=== PATIENT | female | born 1950 | race Caucasian/White ===

== ENCOUNTER 2017-09-17 06:42 | Inpatient (IN) | payer OTHER, MEDICARE ==
[~2017-09-17] VITALS: Ht 157.5 cm; Wt 68.0 kg
--- NOTE | 2017-09-17 06:42 | NUR ---
BBRA 60; N/V WITH DARK RED BLOOD IN VOMIT W/ DIAHREA. COUG THAT PT STATED 'HAS BEEN GOING ON FOR 2 MONTHS". VSS NAD. A/OX4. WILL CONTINUE TO MONITOR FOR ANY CHANGES DURING THE SHIFT.
--- NOTE | 2017-09-17 06:50 | NUR ---
ROSALINDA COVINGTON STARTED RIGHT FA 18G
[2017-09-17] MEDS ORDERED: OCTREOTIDE 1,250 MCG in IV NS 0.9% 250 ML IV ONE (07:00)
[2017-09-17] MEDS ORDERED: IV NS 0.9% 1,000 ML BAG IV ONE (07:00)
[2017-09-17] MEDS ORDERED: ONDANSETRON HCL/PF 4 MG/2 ML VIAL IVP ONE (07:00)
[2017-09-17] MEDS ORDERED: PANTOPRAZOLE 80 MG in IV NS 0.9% 100 ML IV ONE (07:00)
[2017-09-17] MEDS ORDERED: OCTREOTIDE 50 MCG/ML AMPUL IV ONE (07:00)
--- NOTE | 2017-09-17 07:02 | NUR ---
BLOOD COLECTED AND WAITING FOR PICKUP
[2017-09-17] MEDS ORDERED: ONDANSETRON HCL/PF 4 MG/2 ML VIAL ONE (07:06)
[2017-09-17] MEDS ORDERED: PANTOPRAZOLE 40 MG VIAL ONE (07:06)
[2017-09-17] MEDS ORDERED: OCTREOTIDE 500 MCG/ML VIAL ONE (07:07)
[2017-09-17] MEDS ORDERED: OCTREOTIDE 100 MCG/ML VIAL ONE (07:07)
[2017-09-17 07:16] LABS: BASOPHILS # (AUTO) 0.1 /CMM (0.0-0.2); BASOPHILS % (AUTO) 1.7 % (0.0-2.0); EOSINOPHILS % (AUTO) 0.8 % (0.0-6.0); HEMATOCRIT 34 % (33-45); HEMOGLOBIN 11.3 g/dL (11.5-14.8); LYMPHOCYTES # (AUTO) 1.6 /CMM (0.8-4.8); MEAN CORPUSCULAR HGB CONC 33 g/dl (31.0-36.0); MEAN CORPUSCULAR VOLUME 88 fL (82-100); MONOCYTES # (AUTO) 0.9 /CMM (0.1-1.30); MONOCYTES % (AUTO) 12.3 % (2.0-12.0); NEUTROPHILS # (AUTO) 4.7 /CMM (1.8-8.9); NEUTROPHILS % (AUTO) 63.2 % (43.0-81.0); PLATELET COUNT (AUTO) 96 /CMM (150-450); RDW COEFFICIENT OF VARIATION 15.5 (11.5-15.0); RED BLOOD CELL COUNT(AUTO) 3.83 MIL/uL (4.0-5.2); WHITE BLOOD COUNT (AUTO) 7.4 K/uL (4.3-11.0)
--- NOTE | 2017-09-17 07:30 | NUR ---
RECEIVED REPORT FOR ANNITA.
[2017-09-17 07:33] LABS: INR 1.35 (0.87-1.13)
[2017-09-17 07:35] LABS: SERUM AMMONIA 73 umol/L (11-32)
[2017-09-17 07:36] LABS: CALCIUM, SERUM 8.2 mg/dL (8.5-10.1); CARBON DIOXIDE 27 mmol/L (21-32); CHLORIDE 108 mmol/L (98-107); CREATININE 0.7 mg/dL (0.6-1.3); GLUCOSE 172 mg/dL (74-106); POTASSIUM 4.7 mmol/L (3.5-5.1); SODIUM SERUM 144 mmol/L (136-145); UREA NITROGEN, BLOOD 17 mg/dL (7-18)
--- NOTE | 2017-09-17 07:36 | NUR ---
PT VOMIT 110 CC OF COFFEE GROUND EMESIS
[2017-09-17 07:40] LABS: ALANINE AMINOTRANSFERASE 58 U/L (12-78); ALBUMIN 2.8 g/dL (3.4-5.0); ALKALINE PHOSPHATASE 80 U/L (46-116); ASPARTATE AMINOTRANSFERASE 89 U/L (15-37); BILIRUBIN,DIRECT 0.6 mg/dL (0.0-0.2); BILIRUBIN,TOTAL 1.9 mg/dL (0.2-1.0); LIPASE 306 U/L (73-393); TOTAL PROTEIN, SERUM 7.6 g/dL (6.4-8.2)
--- NOTE | 2017-09-17 07:40 | NUR ---
PATIENT TAKEN TO CT VIA STRETCHER.
--- NOTE | 2017-09-17 07:53 | NUR ---
PATIENT RETURNED FROM CT IN STABLE CONDITION.
--- NOTE | 2017-09-17 08:22 | NUR ---
DR PARR CALLED BACK, SPOKE TO DR OHARA
--- NOTE | 2017-09-17 08:24 | NUR ---
PAGED BRYAN THURMAN NP IS RETAIL ASSISTANT
[2017-09-17] MEDS ORDERED: PANTOPRAZOLE 80 MG in IV NS 0.9% 500 ML IV PRN (08:30)
[2017-09-17 09:16] LABS: EOSINOPHILS % (MANUAL) 1 % (0-4); LYMPHOCYTES % (MANUAL) 16 % (16-48); MONOCYTES % (MANUAL) 7 % (0-11.0); NEUTROPHILS % (MANUAL) 76 (42-76)
--- NOTE | 2017-09-17 09:21 | NUR ---
REPORT GIVEN TO RAJEEV TELLEZ FOR ANNITA UPON ADMISSION.
[2017-09-17 09:29] LABS: TROPONIN I < 0.017 ng/mL (0.00-0.056)
--- NOTE | 2017-09-17 09:50 | NUR ---
PATIENT TRANSPORTED TO [facility] VIA ACLS PROTOCOL. RNRAJEEV TO PROVIDE ANNITA.
[2017-09-17 10:30] VITALS: BP 131/69
--- NOTE | 2017-09-17 11:00 | NUR ---
MS RN RECEIVED A NEW ADMISSION, 66 YEAR OLD FEMALE,CAME IN W/ DX OF GI BLEED, AWAKE,ALERT,ORIENTED X4,NOT IN ANY FORM OF DISTRESS, RESPIRATIONS EVEN AND UNLABORED, NO SOB NOTED.
[2017-09-17] MEDS ORDERED: Z GUARD REMEDY 2 OZ OINT TP PRN (11:30)
[2017-09-17] MEDS ORDERED: ONDANSETRON HCL/PF 4 MG/2 ML VIAL IVP PRN (11:30)
[2017-09-17] MEDS ORDERED: MORPHINE SULFATE INJ 4 MG/ML DISP.SYRIN IV PRN (11:30)
--- NOTE | 2017-09-17 12:00 | NUR ---
MS RN WAS SEEN BY NYA Smith/ ORDERS MADE AND CARRIED OUT.
[2017-09-17 12:26] LABS: BASOPHILS % (AUTO) 0.3 % (0.0-2.0); EOSINOPHILS % (AUTO) 0.3 % (0.0-6.0); HEMATOCRIT 30 % (33-45); HEMOGLOBIN 10.2 g/dL (11.5-14.8); LYMPHOCYTES # (AUTO) 0.9 /CMM (0.8-4.8); LYMPHOCYTES % (AUTO) 22.1 % (20.0-44.0); MEAN CORPUSCULAR HGB CONC 34 g/dl (31.0-36.0); MEAN CORPUSCULAR VOLUME 89 fL (82-100); MONOCYTES # (AUTO) 0.5 /CMM (0.1-1.30); MONOCYTES % (AUTO) 11.2 % (2.0-12.0); NEUTROPHILS # (AUTO) 2.8 /CMM (1.8-8.9); NEUTROPHILS % (AUTO) 66.1 % (43.0-81.0); PLATELET COUNT (AUTO) 71 /CMM (150-450); RDW COEFFICIENT OF VARIATION 15.5 (11.5-15.0); RED BLOOD CELL COUNT(AUTO) 3.42 MIL/uL (4.0-5.2); WHITE BLOOD COUNT (AUTO) 4.2 K/uL (4.3-11.0)
[2017-09-17 13:01] LABS: NEUTROPHILS % (MANUAL) 66 (42-76)
[2017-09-17 13:02] LABS: LYMPHOCYTES % (MANUAL) 25 % (16-48); MONOCYTES % (MANUAL) 9 % (0-11.0)
--- NOTE | 2017-09-17 14:10 | NUR ---
MS RN WAS SEEN BY OMAR Smith/ ORDERS MADE AND CARRIED OUT.
[2017-09-17] MEDS ORDERED: NA PHOS,M-B/NA PHOS,DI-BA 1 EA ENEMA RC PRN (14:30)
[2017-09-17] MEDS ORDERED: MAGNESIUM CITRATE 296 ML BOTTLE PO ONE ×2 (14:30→19:00)
[2017-09-17] MEDS ORDERED: LORAZEPAM INJ 2 MG/ML VIAL IV PRN (14:30)
[2017-09-17] MEDS ORDERED: PEG 3350/NA SULF,BICARB,CL/KCL 4,000 ML BOTTLE PO ONE (14:30)
[2017-09-17 15:49] LABS: HEMOGLOBIN 10.5 g/dL (11.5-14.8)
[2017-09-17] MEDS: IV NS 0.9% 1,000 ML IV PRN (15:58)
[2017-09-17] MEDS: METRONIDAZOLE 500MG/ NS 100ML 500 MG in PREMIX 1 EA IV SCH ×2 (15:58→20:24)
[2017-09-17 16:00] VITALS: BP 125/84
[2017-09-17 16:45] LABS: INR 1.41 (0.87-1.13)
[2017-09-17 20:00] VITALS: BP 142/78
[2017-09-17] MEDS: PANTOPRAZOLE 40 MG VIAL IV SCH (20:24)
[2017-09-18] VITALS (7 sets, daily range): BP systolic 122–141; BP diastolic 66–92
[2017-09-18 01:03] LABS: HEMOGLOBIN 9.2 g/dL (11.5-14.8)
[2017-09-18] MEDS: METRONIDAZOLE 500MG/ NS 100ML 500 MG in PREMIX 1 EA IV SCH ×3 (04:34→21:19)
--- NOTE | 2017-09-18 08:00 | NUR ---
ms rn received on bed, awake,alert,oriented x4,not in any form of distress, respirations even and ulabored,no sob noted, lungs have wheezes bilaterally, abdomen soft,positive bowel sounds, denies pain at this time, for egd,colonoscopy this morning, all needs attended.
[2017-09-18 08:05] LABS: BASOPHILS % (AUTO) 0.8 % (0.0-2.0); EOSINOPHILS % (AUTO) 2.8 % (0.0-6.0); HEMATOCRIT 28 % (33-45); HEMOGLOBIN 9.3 g/dL (11.5-14.8); LYMPHOCYTES # (AUTO) 1.1 /CMM (0.8-4.8); LYMPHOCYTES % (AUTO) 33.2 % (20.0-44.0); MEAN CORPUSCULAR HGB CONC 33 g/dl (31.0-36.0); MEAN CORPUSCULAR VOLUME 89 fL (82-100); MONOCYTES # (AUTO) 0.4 /CMM (0.1-1.30); NEUTROPHILS # (AUTO) 1.7 /CMM (1.8-8.9); NEUTROPHILS % (AUTO) 52.2 % (43.0-81.0); PLATELET COUNT (AUTO) 68 /CMM (150-450); RDW COEFFICIENT OF VARIATION 15.2 (11.5-15.0); RED BLOOD CELL COUNT(AUTO) 3.13 MIL/uL (4.0-5.2); WHITE BLOOD COUNT (AUTO) 3.3 K/uL (4.3-11.0)
--- NOTE | 2017-09-18 08:05 | NUR ---
ms rn went down for egd today,all needs attended.
[2017-09-18] MEDS ORDERED: EPINEPHRINE (1:10,000) SYRINGE 1 MG/10 ML DISP.SYRIN ONE (08:15)
[2017-09-18 08:28] LABS: INR 1.39 (0.87-1.13)
[2017-09-18 08:30] LABS: CALCIUM, SERUM 7.4 mg/dL (8.5-10.1); CREATININE 0.8 mg/dL (0.6-1.3); MAGNESIUM 2.3 mg/dL (1.8-2.4); PHOSPHORUS 3.1 mg/dL (2.5-4.9); POTASSIUM 4.1 mmol/L (3.5-5.1)
--- NOTE | 2017-09-18 10:00 | NUR ---
ms rn patient came back from surgery,breakfast served, tolerated well.
[2017-09-18 11:31] LABS: EOSINOPHILS % (MANUAL) 5 % (0-4); LYMPHOCYTES % (MANUAL) 33 % (16-48); NEUTROPHILS % (MANUAL) 48 (42-76)
[2017-09-18 11:32] LABS: MONOCYTES % (MANUAL) 14 % (0-11.0)
--- NOTE | 2017-09-18 12:19 | NUR ---
Social service consult requested by JAE Dye for homelessness. Pt. is a 66 year old male who was admitted to [facility] for GI Bleed. SW and social work case manager met with pt. bedside. Pt. is alert and oriented x 4. Pt. was cooperative with SW during the visit. Pt. states she resides at [facility]. Pt. is currently residing at [facility] and suites [place] [address] [place] [place] [address]. Pt. states she would like to be discharged back to the [facility] once medically cleared. Pt. receives approximately $900 in SSI per month. Pt. does not have an emergency lathe operator contact lens. Pt. is ambulatory with a unsteady gait. Pt. would benefit from a walker upon discharge. dining services manager Niki Byrd is aware. Pt. denies drug use, however pt. drinks small bottles of [place] beer per day. pt. states she last drank on Saturday. Pt. smokes about 6 to 7 cigarettes per day. Pt. denies suicidal/homicidal ideations and visual/auditory hallucinations at this time. Pt. declined [facility] placement and would like to go back to the [facility] in [place]. No other social service needs are requested at this time. SW is available, if needed.
[2017-09-18] MEDS: PANTOPRAZOLE 40 MG VIAL IV SCH ×2 (13:59→21:19)
--- NOTE | 2017-09-18 20:15 | NUR ---
RN NOTES RECEIVED PT AWAKE ON BED, PT JUST CAME UP, THEY DID HIDA-SCAN DOWNSTAIRS, PT. IS A/OX3, DENIES PAIN, NO SOB, CALL LIGHT WITHIN REACH, SIDERAILSUPX2, CONTINUE TO MONITOR
[2017-09-19] MEDS: METRONIDAZOLE 500MG/ NS 100ML 500 MG in PREMIX 1 EA IV SCH ×3 (04:16→20:59)
[2017-09-19] MEDS: IPRATROPIUM NEB FS 0.5 MG/2.5 ML AMPUL.NEB NEB PRN ×3 (05:04→21:10)
[2017-09-19] MEDS: ALBUTEROL FS 2.5 MG/0.5 ML VIAL.NEB NEB PRN ×3 (05:04→21:10)
[2017-09-19] MEDS: OCTREOTIDE 1,250 MCG in IV NS 0.9% 247.5 ML IV PRN (05:50)
--- NOTE | 2017-09-19 06:19 | NUR ---
RN NOTES AWAKE , MORNING CARE RENDERED, CALL LIGHT WITHIN REACH, SIDERIALSUPX2, PT. NEEDS ATTENDED
[2017-09-19 08:00] VITALS: BP 108/57
--- NOTE | 2017-09-19 08:00 | NUR ---
MS RN RECEIVED ON BED. AWAKE,ALERT,ORIENTED X4,NOT IN ANY FORM OF DISTRESS, RESPIRATIONS EVEN AND UNLABORED,NO SOB NOTED, LUNGS HAVE WHEEZES BILATERALLY ,ABDOMEN SOFT,POSITIVE BOWEL SOUNDS, DENIES PAIN AT THIS TIME, WILL,MONITOR PATIENT'S CONDITION.
[2017-09-19 08:28] LABS: BASOPHILS % (AUTO) 0.4 % (0.0-2.0); EOSINOPHILS % (AUTO) 3.4 % (0.0-6.0); HEMATOCRIT 27 % (33-45); HEMOGLOBIN 9.1 g/dL (11.5-14.8); LYMPHOCYTES % (AUTO) 32.3 % (20.0-44.0); MEAN CORPUSCULAR HGB CONC 34 g/dl (31.0-36.0); MEAN CORPUSCULAR VOLUME 89 fL (82-100); MONOCYTES # (AUTO) 0.3 /CMM (0.1-1.30); MONOCYTES % (AUTO) 10.4 % (2.0-12.0); NEUTROPHILS # (AUTO) 1.6 /CMM (1.8-8.9); NEUTROPHILS % (AUTO) 53.5 % (43.0-81.0); PLATELET COUNT (AUTO) 70 /CMM (150-450); RDW COEFFICIENT OF VARIATION 15.4 (11.5-15.0); RED BLOOD CELL COUNT(AUTO) 3.06 MIL/uL (4.0-5.2)
[2017-09-19] MEDS: PANTOPRAZOLE 40 MG VIAL IV SCH ×2 (08:41→20:58)
--- NOTE | 2017-09-19 08:45 | NUR ---
MS TELLEZ BREAKFAST SERVED,DUE MEDS GIVEN,TOLERATED WELL.
[2017-09-19 08:59] LABS: CALCIUM, SERUM 7.6 mg/dL (8.5-10.1); CREATININE 0.8 mg/dL (0.6-1.3); MAGNESIUM 1.8 mg/dL (1.8-2.4); PHOSPHORUS 3.6 mg/dL (2.5-4.9); POTASSIUM 4.2 mmol/L (3.5-5.1)
[2017-09-19 10:14] LABS: EOSINOPHILS % (MANUAL) 3 % (0-4); LYMPHOCYTES % (MANUAL) 27 % (16-48); MONOCYTES % (MANUAL) 9 % (0-11.0); NEUTROPHILS % (MANUAL) 61 (42-76)
[2017-09-19 16:00] VITALS: BP 100/64
--- NOTE | 2017-09-19 18:07 | NUR ---
MS RN ON BED, NO DISTRESS NOTED.
--- NOTE | 2017-09-19 19:30 | NUR ---
RN NOTES RECEIVED PT. AWAKE ON BED, A/OX3, SANDOSTATIN RUNNING @ 10ML/HR, DENIES PAIN, NO SOB, CALL LIGHT WITHIN REACH, SIDERAILSUPX2, CONTINUE TO MONITOR
[2017-09-19 20:00] VITALS: BP 116/70
[2017-09-20] MEDS: METRONIDAZOLE 500MG/ NS 100ML 500 MG in PREMIX 1 EA IV SCH ×3 (04:57→21:40)
[2017-09-20] MEDS: OCTREOTIDE 1,250 MCG in IV NS 0.9% 247.5 ML IV PRN (06:32)
--- NOTE | 2017-09-20 06:53 | NUR ---
RN NOTES AWAKE, MORNING CALL LIGHT WITHIN REACH, SIDERAILSUPX2, DENIES PAIN, NO SOB, PT NEEDS ATTENDED CARE RENDERED
[2017-09-20 07:30] LABS: BASOPHILS % (AUTO) 0.4 % (0.0-2.0); EOSINOPHILS % (AUTO) 2.7 % (0.0-6.0); HEMATOCRIT 27 % (33-45); HEMOGLOBIN 8.9 g/dL (11.5-14.8); LYMPHOCYTES % (AUTO) 30.3 % (20.0-44.0); MEAN CORPUSCULAR HGB CONC 33 g/dl (31.0-36.0); MEAN CORPUSCULAR VOLUME 89 fL (82-100); MONOCYTES # (AUTO) 0.3 /CMM (0.1-1.30); MONOCYTES % (AUTO) 9.7 % (2.0-12.0); NEUTROPHILS # (AUTO) 1.8 /CMM (1.8-8.9); NEUTROPHILS % (AUTO) 56.9 % (43.0-81.0); PLATELET COUNT (AUTO) 68 /CMM (150-450); RDW COEFFICIENT OF VARIATION 15.1 (11.5-15.0); RED BLOOD CELL COUNT(AUTO) 3.06 MIL/uL (4.0-5.2); WHITE BLOOD COUNT (AUTO) 3.2 K/uL (4.3-11.0)
[2017-09-20 07:37] LABS: CALCIUM, SERUM 7.7 mg/dL (8.5-10.1); CREATININE 0.8 mg/dL (0.6-1.3); MAGNESIUM 1.7 mg/dL (1.8-2.4); PHOSPHORUS 4.1 mg/dL (2.5-4.9); POTASSIUM 4.1 mmol/L (3.5-5.1)
[2017-09-20 08:00] VITALS: BP 127/67
--- NOTE | 2017-09-20 08:00 | NUR ---
RN NOTES RECEIVED PATIENT IN THE BED A/O X4, PATIENT HAS NO RESPIRATORY DISTRESS, ON O2-2L NC, SCHEDULED MEDICATION ADMINISTERED, V/S STABLE. IV NS AT 75 ML/HR INTACT , ENCOURAGED TO EXPRESS FEELINGS AND CONCERNS. PATIENT HAS NO DIARRHEA TODAY. PATIENT AMBULATORY USING BATHROOM, CALL LIGHT WITHIN TO REACH, SAFETY PRECAUTION MAINTAINED ALL THE TIME. CONTINUED MONITORING.
[2017-09-20] MEDS: PANTOPRAZOLE 40 MG VIAL IV SCH ×2 (09:32→21:40)
[2017-09-20 09:49] LABS: EOSINOPHILS % (MANUAL) 4 % (0-4); LYMPHOCYTES % (MANUAL) 21 % (16-48); MONOCYTES % (MANUAL) 7 % (0-11.0); NEUTROPHILS % (MANUAL) 68 (42-76)
[2017-09-20] MEDS ORDERED: methylPREDNISolone SOD SUCC 125 MG/2ML VIAL IV ONE (10:00)
[2017-09-20] MEDS: Magnesium 1GM/D5W 100ML PREMIX 100 ML IV SCH ×2 (11:46→13:33)
[2017-09-20] MEDS: methylPREDNISolone SOD SUCC 125 MG/2ML VIAL IV SCH ×2 (13:34→16:51)
--- NOTE | 2017-09-20 15:14 | NUR ---
RN NOTES ADMINISTERED MORPHINE 2 MG/ML IV PUSH PER PATIENT REQUEST GENERALIZED PAIN 8/10, V/S TAKEN BP-127/67, P-71, CALL LIGHT WITHIN TO REACH, CONTINUED MONITORING.
--- NOTE | 2017-09-20 15:30 | NUR ---
MSRN RECEIVING NOTES. PT A&0X3, WATCHING T.V IN BED. PT WITH O2 VIA NC AT 1LPM, SAO2 92%, PT DENIES RESP DISTRESS. PT REPORTS ADEQUATE PAIN MANAGEMENT. PT WITH IVCX2. IVC AT R FA G18 INTACT AND SALINE FLUSH PATENT. IVC AT L FA G#22 INTACT AND OPERATIONAL WITH MEDICATION PRESCRIBED. PT BED IN LOWEST LOCKED POSITION WITH HANDRAILSX2 ANDS CALL MOBLEY WITHIN REACH. PT BRIEFED ON TODAY'S POC AND IS WITHOUT CONCERN OR COMPLAINT.
--- NOTE | 2017-09-20 15:30 | NUR ---
RN NOTES PATIENT IN THE BED MEDICATION WERE ADMINISTERED FOR PAIN EFFECTIVE. PATIENT LYING DEB OF THER BED, NO ACUTE DISTRESS, NO RESPIRATORY DISTRESS. REPORT GIVEN ROSALINDA HARDEN FOR ANNITA.
[2017-09-20 16:00] VITALS: BP 139/77
--- NOTE | 2017-09-20 17:00 | NUR ---
MSRN NOTES. PT REPORTS LARGE FORMED BOWEL MOTION WITHOUT ABNORMALITY. BMX2 TODAY.
--- NOTE | 2017-09-20 18:17 | NUR ---
MSRN CLOSING NOTES. PT REMAINS STABLE. PT TOLERATING ROOM AIR AND DENIES RESP DISTRESS. PT REPORTS ADEQUATE PAIN MANAGEMENT. PT WITH IVCX2 INTACT AND OPERATIONAL OR SALINE LOCKED. PT BED IN LOWEST LOCKED POSITION WITH HANDRAILSX2 AND CALL MOBLEY WITHIN REACH. ALL DAY NURSE DUTIES ATTENDED TO AND PT IS WITHOUT CONCERN OR COMPLAINT AT THIS TIME. WILL ENDORSE TO NIGHT NURSE AT BEDSIDE FOR ANNITA.
--- NOTE | 2017-09-20 19:15 | NUR ---
MS/RN OPENING NOTES PT RECEIVED AWAKE, HOB ELEVATED HIGH FOWLERS, WATCHING TV. A/OX4. CURRENTLY ON ROOM AIR, BREATHING EVEN AND UNLABORED. DENIES SOB AT THIS TIME. NO COMPLAINTS OF PAIN, NOTES SOME ABDOMINAL DISCOMFORT/SORENESS BUT ITS TOLERABLE AND DOES NOT WANT PAIN MEDICATION AT THIS TIME. PT CONFIRMS SHE IS PASSING GAS AND HAD A BM TODAY WITH NO S/S OF BLEEDING. IV TO LFA PATENT AND INTACT RUNNING SANDOSTATIN AT 10ML/HR ORDERED. BED IN LOW/LOCKED POSITION WITH CALL LIGHT IN REACH. SIDE RAILS UPX2. WILL CONTINUE TO MONITOR
[2017-09-20 20:00] VITALS: BP 119/76
[2017-09-21] MEDS: METRONIDAZOLE 500MG/ NS 100ML 500 MG in PREMIX 1 EA IV SCH ×3 (05:19→21:37)
[2017-09-21 06:26] LABS: HEMATOCRIT 30 % (33-45); LYMPHOCYTES # (AUTO) 0.5 /CMM (0.8-4.8); LYMPHOCYTES % (AUTO) 8.1 % (20.0-44.0); MEAN CORPUSCULAR HGB CONC 34 g/dl (31.0-36.0); MEAN CORPUSCULAR VOLUME 89 fL (82-100); MONOCYTES # (AUTO) 0.3 /CMM (0.1-1.30); MONOCYTES % (AUTO) 5.4 % (2.0-12.0); NEUTROPHILS # (AUTO) 5.5 /CMM (1.8-8.9); NEUTROPHILS % (AUTO) 86.5 % (43.0-81.0); PLATELET COUNT (AUTO) 79 /CMM (150-450); RDW COEFFICIENT OF VARIATION 15.3 (11.5-15.0); RED BLOOD CELL COUNT(AUTO) 3.35 MIL/uL (4.0-5.2); WHITE BLOOD COUNT (AUTO) 6.4 K/uL (4.3-11.0)
[2017-09-21 06:41] LABS: CALCIUM, SERUM 7.8 mg/dL (8.5-10.1); CREATININE 0.8 mg/dL (0.6-1.3); PHOSPHORUS 3.8 mg/dL (2.5-4.9); POTASSIUM 4.2 mmol/L (3.5-5.1)
--- NOTE | 2017-09-21 07:00 | NUR ---
MS/RN CLOSING NOTES PT ASLEEP, EASILY AROUSABLE TO NAME. A/OX3, ON O2L VIA NC, BREATHING EVEN AND UNLABORED. DENIES SOB OR PAIN AT THIS TIME. IV TO LFA PATENT AND INTACT RUNNING SANDOSTATIN AT 10ML/HR ORDERED. NO S/S OF BLEEDING NOTED DURING SHIFT. NO SIGNIFICANT CHANGES OVERNIGHT. KEPT PT COMFORTABLE. BED REMAINS IN LOW/LOCKED POSITION WITH CALL LIGHT IN REACH. SIDE RAILS UPX2. WILL ENDORSE TO DAY SHIFT RN ANNITA.
--- NOTE | 2017-09-21 07:30 | NUR ---
MS RN NOTES PATIENT RECEIVED RESTING INSIDE ROOM. SLEEPING, EASILY AROUSABLE THROUGH VERBAL AND TACTILE STIMULI. PATIENT ALERT AND ORIENTED, ABLE TO MAKE NEEDS KNOWN AND FOLLOW SIMPLE INSTRUCTIONS. BREATHING EVEN AND UNLABORED. NO SOB OR ACUTE DISTRESS NOTED AT THIS TIME. PATIENT AFEBRILE, SKIN DRY AND WARM TO TOUCH. IV SITE ON LFA INTACT AND PATENT, ONGOING IV SANDOSTATIN @ 10CC/HR. NO SWELLING OR BLEEDING NOTED ON IV SITE. WILL CONTINUE TO MONITOR. BED LOCKED AND IN LOW POSITION. BILATERAL UPPER SIDERAILS UP AND LOCKED. CALL LIGHT WITHIN EASY REACH
[2017-09-21 07:55] LABS: BAND % (MANUAL) 3 % (0.0-5.0); LYMPHOCYTES % (MANUAL) 10 % (16-48); MONOCYTES % (MANUAL) 3 % (0-11.0); NEUTROPHILS % (MANUAL) 84 (42-76)
[2017-09-21 08:00] VITALS: BP 124/76
[2017-09-21] MEDS: PANTOPRAZOLE 40 MG VIAL IV SCH ×2 (08:37→21:37)
[2017-09-21] MEDS: methylPREDNISolone SOD SUCC 125 MG/2ML VIAL IV SCH ×3 (08:37→17:24)
[2017-09-21] MEDS: OCTREOTIDE 1,250 MCG in IV NS 0.9% 247.5 ML IV PRN (12:18)
--- NOTE | 2017-09-21 12:18 | NUR ---
MS RN NOTES RECEIVED CALL FROM JACINTO, SPOKE WITH DEL. WITH REQUEST FOR SANDOSTATIN BAG TO BE REPLACED/CHANGED PREVIOUS BAG IS PAST 24 HOURS. SANDOSTATIN BAG CHANGED, IV INFUSING AT 10CC/HR. WILL CONTINUE TO MONITOR.
[2017-09-21 16:00] VITALS: BP 134/80
--- NOTE | 2017-09-21 18:59 | NUR ---
MS RN NOTES PATIENT RESTING INSIDE ROOM. AWAKE, ALERT AND ORIENTED, ABLE TO MAKE NEEDS KNOWN AND FOLLOW SIMPLE INSTRUCTIONS. BREATHING EVEN AND UNLABORED. NO SOB OR ACUTE DISTRESS NOTED AT THIS TIME. PATIENT AFEBRILE, SKIN DRY AND WARM TO TOUCH. NO CHANGES IN LOC NOTED. ONGOING SANDOSTATIN IV AT 10CC/HR. IV SITE ON LEFT FOREARM INTACT AND PATENT, NO BLEEDING OR SWELLING NOTED. WILL ENDORSE TO INCOMING SHIFT FOR ANNITA. BED LOCKED AND IN LOW POSITION. BILATERAL UPPER SIDE RAILS UP AND LOCKED. CALL LIGHT WITHIN EASY REACH
--- NOTE | 2017-09-21 19:30 | NUR ---
MS RN OPENING NOTE RECEIVED PATIENT IN BED, ALERT ORIENTED X4, ABLE TO MAKE NEEDS KNOWN, ON 2L OXYGEN VIA NC, TOLERATING WELL, RESPIRATIONS EVEN AND UNLABORED, IN NO APPARENT DISTRESS OR DISCOMFORT. DENIES SOB AND PAIN. PATIENT IS AMBULATORY WITH STANDBY ASSISTANCE. IV SITE ON LEFT FOREARM WITH SANDOSTATIN IV RUNNING AT 10ML/HR, PATENT AND INTACT, NO SIGN OF INFILTRATION OBSERVED. SAFETY MEASURES IN PLACE, BED IN LOW LOCKED POSITION, SIDE RAILS UP X2, CALL LIGHT WITHIN EASY REACH, WILL CONTINUE TO MONITOR.
[2017-09-21 20:00] VITALS: BP 135/84
[2017-09-22] MEDS: METRONIDAZOLE 500MG/ NS 100ML 500 MG in PREMIX 1 EA IV SCH ×3 (05:13→20:06)
--- NOTE | 2017-09-22 06:56 | NUR ---
MS RN CLOSING NOTE PATIENT IN BED, SLEEPING, EASILY AROUSED WITH VERBAL STIMULI, ORIENTED X4, ABLE TO MAKE NEEDS KNOWN, ON 2L OXYGEN VIA NC, TOLERATING WELL, RESPIRATIONS EVEN AND UNLABORED, IN NO APPARENT DISTRESS OR DISCOMFORT. DENIES SOB AND PAIN. PATIENT IS AMBULATORY WITH STANDBY ASSISTANCE. IV SITE ON LEFT FOREARM WITH SANDOSTATIN IV RUNNING AT 10ML/HR, PATENT AND INTACT, NO SIGN OF INFILTRATION OBSERVED. KEPT CLEAN AND COMFORTABLE, ALL NEEDS ATTENDED. SAFETY MEASURES IN PLACE, BED IN LOW LOCKED POSITION, SIDE RAILS UP X2, CALL LIGHT WITHIN EASY REACH, WILL ENDORSE TO AM NURSE FOR ANNITA.
--- NOTE | 2017-09-22 07:42 | NUR ---
MS RN OPENING NOTES RECEIVED PATIENT IN STABLE CONDITION. IN NO APPARENT DISTRESS. BEDSIDE RAILS ARE UPX2. BED IS LOCKED AND LOWERED. CALL LIGHT IS WITHIN REACH. IV LINE IS INTACT AND PATENT. WILL CONTINUE TO MONITOR.
[2017-09-22 07:46] LABS: BASOPHILS % (AUTO) 0.1 % (0.0-2.0); HEMATOCRIT 29 % (33-45); HEMOGLOBIN 9.6 g/dL (11.5-14.8); LYMPHOCYTES # (AUTO) 0.9 /CMM (0.8-4.8); LYMPHOCYTES % (AUTO) 10.2 % (20.0-44.0); MEAN CORPUSCULAR HGB CONC 33 g/dl (31.0-36.0); MEAN CORPUSCULAR VOLUME 89 fL (82-100); MONOCYTES # (AUTO) 0.5 /CMM (0.1-1.30); NEUTROPHILS # (AUTO) 7.2 /CMM (1.8-8.9); NEUTROPHILS % (AUTO) 83.7 % (43.0-81.0); PLATELET COUNT (AUTO) 86 /CMM (150-450); RDW COEFFICIENT OF VARIATION 15.7 (11.5-15.0); RED BLOOD CELL COUNT(AUTO) 3.27 MIL/uL (4.0-5.2); WHITE BLOOD COUNT (AUTO) 8.6 K/uL (4.3-11.0)
[2017-09-22 07:53] LABS: CALCIUM, SERUM 8.1 mg/dL (8.5-10.1); CREATININE 0.7 mg/dL (0.6-1.3); MAGNESIUM 1.9 mg/dL (1.8-2.4); PHOSPHORUS 3.7 mg/dL (2.5-4.9)
[2017-09-22 08:03] VITALS: BP 148/83
[2017-09-22] MEDS: PANTOPRAZOLE 40 MG VIAL IV SCH ×2 (08:26→20:06)
[2017-09-22] MEDS: methylPREDNISolone SOD SUCC 125 MG/2ML VIAL IV SCH ×3 (08:26→16:00)
[2017-09-22 09:27] LABS: BAND % (MANUAL) 1 % (0.0-5.0); LYMPHOCYTES % (MANUAL) 9 % (16-48); MONOCYTES % (MANUAL) 6 % (0-11.0); NEUTROPHILS % (MANUAL) 84 (42-76)
[2017-09-22 16:00] VITALS: BP 163/93
--- NOTE | 2017-09-22 18:58 | NUR ---
MS RN CLOSING NOTES PATIENT IS ALERT AND ORIENTED. IN NO APPARENT DISTRESS. BEDSIDE RAILS ARE UPX2. BED IS LOCKED AND LOWERED. ALL NEEDS WERE MET. CALL LIGHT IS WITHIN REACH. IV LINE IS INTACT AND PATENT. WILL ENDORSE CARE TO DITCH RIDER NURSE FOR ANNITA.
--- NOTE | 2017-09-22 19:40 | NUR ---
MS RN OPENING NOTES RECEIVED PT IN BED ALERT, AWAKE, VERBALLY RESPONSIVE, ON ROOM AIR, RESPIRATION EVEN, UNLABORED, NO APPARENT DISTRESS NOTED. DENIES ANY PAIN OR DISCOMFORT AT THIS TIMEIV SITE LFA INTACT, PATENT.CALL LIGHT WITHIN REACH,BED LOCKED IN LOWEST POSITION. ATTENDED ALL NEEDS. WILL CONTINUE TO MONITOR ACCORDINGLY.
[2017-09-22 20:00] VITALS: BP 151/82
[2017-09-23] MEDS: METRONIDAZOLE 500MG/ NS 100ML 500 MG in PREMIX 1 EA IV SCH ×2 (04:08→13:48)
--- NOTE | 2017-09-23 06:30 | NUR ---
MS RN CLOSING NOTES PT IN BED ASLEEP, ON O2 VIA N/C NO APPARENT DISTRESS NOTED. NO S/SX OF PAIN OR DISCMFORT NOTED. CALL LIGHT WITHIN REACH. BED LOCKED IN LOWEST POSITION. KEPT CLEAN AND COMFORTABLE, ATTENDED ALL NEEDS. WILL CONTINUE TO MONITOR ACCORDINGLY.
[2017-09-23 06:39] LABS: CALCIUM, SERUM 8.1 mg/dL (8.5-10.1); CREATININE 0.8 mg/dL (0.6-1.3); POTASSIUM 3.9 mmol/L (3.5-5.1)
[2017-09-23 06:54] LABS: BASOPHILS % (AUTO) 0.2 % (0.0-2.0); HEMATOCRIT 28 % (33-45); HEMOGLOBIN 9.1 g/dL (11.5-14.8); LYMPHOCYTES # (AUTO) 0.7 /CMM (0.8-4.8); LYMPHOCYTES % (AUTO) 11.6 % (20.0-44.0); MEAN CORPUSCULAR HGB CONC 33 g/dl (31.0-36.0); MEAN CORPUSCULAR VOLUME 88 fL (82-100); MONOCYTES # (AUTO) 0.5 /CMM (0.1-1.30); MONOCYTES % (AUTO) 8.1 % (2.0-12.0); NEUTROPHILS # (AUTO) 4.9 /CMM (1.8-8.9); NEUTROPHILS % (AUTO) 80.1 % (43.0-81.0); PLATELET COUNT (AUTO) 89 /CMM (150-450); RDW COEFFICIENT OF VARIATION 15.6 (11.5-15.0); RED BLOOD CELL COUNT(AUTO) 3.17 MIL/uL (4.0-5.2); WHITE BLOOD COUNT (AUTO) 6.1 K/uL (4.3-11.0)
--- NOTE | 2017-09-23 07:30 | NUR ---
m/s chain tender: initial assessment received pt in bed awake, a/ox3. no c/o n/v/d at this time. continue on ivf, infusing well. instructed to call for assistance. will continue to monitor.
[2017-09-23 08:00] VITALS: BP_SYST 142; BP_SYST 144; BP_DIAS 63; BP_DIAS 73
[2017-09-23 09:25] LABS: LYMPHOCYTES % (MANUAL) 10 % (16-48); MONOCYTES % (MANUAL) 6 % (0-11.0); NEUTROPHILS % (MANUAL) 84 (42-76)
[2017-09-23] MEDS: PANTOPRAZOLE 40 MG VIAL IV SCH (09:36)
[2017-09-23] MEDS: methylPREDNISolone SOD SUCC 125 MG/2ML VIAL IV SCH ×2 (09:38→13:48)
--- NOTE | 2017-09-23 10:00 | NUR ---
m/s shaker flatwork: notes up and about in room. no distress noted. will continue to monitor.
[2017-09-23] MEDS: IV NS 0.9% 1,000 ML IV PRN (11:08)
--- NOTE | 2017-09-23 11:16 | NUR ---
RACHEL met with pt. bedside to confirm discharge plan. Pt. informed SW she wants to run some errands upon discharge and check on her social security income. Pt. plans to go to the [facility] and suites located at [address] [place] [address]. [place] [id number] where she was staying prior to hospitalization. Pt. will require two bus tokens upon discharge. RACHEL updated [facility] [place] regarding discharge plan. RACHEL to give pt. homeless resources and have pt. sign Homeless Patient Waiver form upon discharge. Addendum: 09/23/17 at 1503 by JAIME RAMOS RACHEL offered pt. homeless intermediate placement again, however pt. declined. RACHEL gave pt. the following Homeless Resources: [facility] ; [facility] ; [facility] homeless Services , and a list of referral s to emergency shelters. Homeless Waiver Patient Form was signed by pt. and placed in pt's chart. RACHEL gave pt. a pair of pants and Tshirt. No other social service needs are required at this time. RACHEL is available, if needed.
--- NOTE | 2017-09-23 14:20 | NUR ---
m/s coffee urn attendant: md visit seen and examined by nely mata with order to d'c home. order acknowledged. friends at bedside sleeping. will continue to monitor.
[2017-09-23] MEDS ORDERED: PRED50TA PO (14:42)
[2017-09-23] MEDS ORDERED: ALBU2.5V13 IH (14:42)
[2017-09-23] MEDS ORDERED: TIOT18CA3 INH (14:42)
[2017-09-23] MEDS ORDERED: METH4TAB17 PO (14:42)
[2017-09-23] MEDS ORDERED: PANT40TA2 PO (14:42)
--- NOTE | 2017-09-23 15:00 | NUR ---
m/s damaged freight inspector: notes pt refusing to leave at this time; also friends also insisting that she can go to rehab. social worker palliative care notified and spoke to pt and friends.
--- NOTE | 2017-09-23 16:00 | NUR ---
m/s service tester: notes pt wants to find out if she qualifies for board and care or snf. secondary social studies teacher and case management aware.
--- NOTE | 2017-09-23 16:20 | NUR ---
m/s software applications developer: notes per iam (case management), pt has no criteria for snf placement. pt made aware and agreed to go hotel. pt already signed the homeless waiver with social media marketing analyst earlier. h/l removed with tip intact with no swelling, no redness, and no bleeding noted. discharge instructions with prescriptions given to pt and verbalized understanding.
--- NOTE | 2017-09-23 16:38 | NUR ---
m/s gastrointestinal technician: discharged discharged home in stable condition with bus tokens accompanied by friends.
== END 2017-09-23 16:35 | disposition home or self-care (01) | DRG 242 ==
LOC: ER 06:42 → TELE 09:15 → MED 09-18 09:42
PROVIDERS: ADMIT Nurse Practitioner Acute Care; ATTEND Nurse Practitioner Acute Care
PROC: 0DBK8ZZ Excision of Ascending Colon, Via Natural or Artificial Opening Endoscopic (ICD-10-PCS; principal; 2017-09-18 08:12)
PROC: 0DB68ZX Excision of Stomach, Via Natural or Artificial Opening Endoscopic, Diagnostic (ICD-10-PCS; principal; 2017-09-18 08:12)
PROC: 0W3P8ZZ Control Bleeding in Gastrointestinal Tract, Via Natural or Artificial Opening Endoscopic (ICD-10-PCS; principal; 2017-09-18 08:12)
DX: K22.6 Gastro-esophageal laceration-hemorrhage syndrome (principal); I85.11 Secondary esophageal varices with bleeding; E44.0 Moderate protein-calorie malnutrition; K81.0 Acute cholecystitis; E72.20 Disorder of urea cycle metabolism, unspecified; D68.9 Coagulation defect, unspecified; K76.6 Portal hypertension; D62 Acute posthemorrhagic anemia; D69.6 Thrombocytopenia, unspecified; R04.2 Hemoptysis; K57.30 Diverticulosis of large intestine without perforation or abscess without bleeding; D12.2 Benign neoplasm of ascending colon; D17.5 Benign lipomatous neoplasm of intra-abdominal organs; K64.8 Other hemorrhoids; K52.9 Noninfective gastroenteritis and colitis, unspecified; D63.8 Anemia in other chronic diseases classified elsewhere; R74.0 Nonspecific elevation of levels of transaminase and lactic acid dehydrogenase [LDH]; E80.6 Other disorders of bilirubin metabolism; B19.20 Unspecified viral hepatitis C without hepatic coma; F17.210 Nicotine dependence, cigarettes, uncomplicated; R73.9 Hyperglycemia, unspecified; F10.239 Alcohol dependence with withdrawal, unspecified; K70.9 Alcoholic liver disease, unspecified; K31.89 Other diseases of stomach and duodenum; J44.1 Chronic obstructive pulmonary disease with (acute) exacerbation
CPT/HCPCS: 36415; 71045-TC; 76705-TC; 78226; 80048-TC; 80061-TC; 80074; 80076-TC; 82140-TC; 82962-TC; 83690-TC; 83735-TC; 84100-TC; 84484-TC; 85025-TC; 85027-TC; 85610-TC; 85730-TC; 86850-TC; 87040-TC; 87081-TC; 88305-TC; 88313-TC; 88342; A4216; A4606; A9537; C9113; J0171; J2270; J2354; J2405; J2704; J2930; J3475; J3490; J7030; J7040; J7050; Z7610